=== PATIENT | male | born 1955 | race Caucasian/White ===

== ENCOUNTER 2020-05-19 08:27 | Day surgery (SDC) | payer MEDICAID ==
[~2020-05-19] VITALS: Ht 170.2 cm; Wt 73.7 kg
[~2020-05-19 08:27] MED LIST: BACL10TA PO; HYDR-4383 PO; MELO-100 PO; TOPI25TA15 PO; ZOLP10TA5 PO
[2020-05-19 08:45] VITALS: BP 125/80
[2020-05-19] MEDS ORDERED: normal saline 1000ml 1,000 ML IV SCH ×2 (09:00→11:15)
[2020-05-19] MEDS ORDERED: OXYC-658 PO (09:01)
[2020-05-19] MEDS ORDERED: [UNRECOGNIZED DRUG - CODE] (09:01)
[2020-05-19] MEDS ORDERED: LIDOcaine 1%/PF 5ML 10 MG/ML VIAL ONE (10:04)
[2020-05-19] MEDS ORDERED: midazolam 2 mg/2 ml injection ONE (10:04)
[2020-05-19] MEDS ORDERED: heparin 1,000unit/ml 10ml vial 10 ML ONE (10:04)
[2020-05-19] MEDS ORDERED: fentaNYL/PF 50MCG/1 ML 2ML syringe ONE (10:05)
[2020-05-19] MEDS ORDERED: heparin sodium, porcine/PF 100unit/ml 5ML syringe ONE (10:31)
[2020-05-19 11:15] VITALS: BP 136/73
--- NOTE | 2020-05-19 11:22 | NUR ---
Called Dr. Velez re pt's discharge time of 1 hour. stated if vitals were stable & pt ready, discharge could occur now.
== END 2020-05-19 11:35 | disposition home or self-care (01) ==
LOC: SSTAY O 08:27
PROVIDERS: ATTEND Radiology Diagnostic Radiology
DX: C7A.8 Other malignant neuroendocrine tumors (principal); K74.60 Unspecified cirrhosis of liver; G58.9 Mononeuropathy, unspecified; F19.20 Other psychoactive substance dependence, uncomplicated; M10.9 Gout, unspecified; E83.119 Hemochromatosis, unspecified; Z79.899 Other long term (current) drug therapy
CPT/HCPCS: 36561; 76937; 77001; 99152; 99153; C1769; C1788; C1894; J1642; J1644; J2250; J3010